=== PATIENT | female | born 1970 | race African-American/Black ===

== ENCOUNTER 2022-09-27 03:33 | Inpatient (IN) | payer OTHER ==
[~2022-09-27] VITALS: Ht 165.1 cm; Wt 131.5 kg
[2022-09-27] MEDS ORDERED: ACETAMINOPHEN 325MG TABLET PO STA (05:28)
[2022-09-27] MEDS ORDERED: SODIUM CHLORIDE 0.9% 1,000 ML IV ONE (05:30)
[2022-09-27 05:56] LABS: BASOPHILS % 1.4 % (0.0-2.0); HEMOGLOBIN. 9.2 g/dL (12.0-16.0); LYMPHOCYTES % 21.2 % (20.0-50.0); MEAN CORPUSCULAR HEMOGLOBIN 19.8 pg (28.0-32.0); MEAN CORPUSCULAR VOLUME 66.9 fL (81.0-99.0); MEAN PLATELET VOLUME 8.5 fl (7.4-10.4); MONOCYTES % 11.1 % (2.0-8.0); NEUTROPHILS % 66.3 % (40.0-76.0); PLATELET 279 x1000/uL (130-400); RED BLOOD CELL COUNT 4.63 mill/uL (4.2-5.4); RED CELL DISTRIBUTION WIDTH 29.5 % (11.6-14.6)
[2022-09-27 06:07] LABS: CHLORIDE 106 mEq/L (98-107)
[2022-09-27 06:10] LABS: INR 1.1; PROTHROMBIN TIME 11.6 sec (9.6-11.0)
[2022-09-27 06:13] LABS: ETHANOL BLOOD 188 mg/dL (-10)
[2022-09-27 07:25] LABS: PLATELET ESTIMATE NORMAL
[2022-09-27] MEDS ORDERED: FUROSEMIDE 40MG/4ML VIAL IV ONE (08:00)
[2022-09-27] MEDS ORDERED: NITROGLYCERIN OINT 1GM/INCH UDPKT TD ONE (08:00)
[2022-09-27] MEDS ORDERED: ASPIRIN 325MG EC TABLET PO NR (10:00)
[2022-09-27] MEDS ORDERED: ACETAMINOPHEN 325MG TABLET PO NR (10:00)
[2022-09-27] MEDS ORDERED: ENOXAPARIN 100MG/ML SYR SUBCUT NR (10:00)
[2022-09-27] MEDS ORDERED: MORPHINE SULFATE 4 MG/ML CPJ (NOT FOR IM USE) IV NR (11:00)
[2022-09-27] MEDS ORDERED: ACETAMINOPHEN 325MG TABLET PO PRN ×2 (13:30)
[2022-09-27] MEDS ORDERED: LORAZEPAM 0.5MG TABLET PO PRN (13:30)
[2022-09-27] MEDS ORDERED: DOCUSATE SODIUM 100MG CAPSULE PO PRN (13:30)
[2022-09-27] MEDS ORDERED: HYDROCODONE/ACETAMINOPHEN 5/325MG TABLET PO PRN (13:30)
[2022-09-27] MEDS ORDERED: CLONIDINE 0.1MG TABLET PO PRN (13:30)
[2022-09-27] MEDS ORDERED: PIPERACILLIN/TAZ 3.375G PREMIX 50 ML IV NR (13:30)
[2022-09-27] MEDS ORDERED: ONDANSETRON HCL 4MG/2ML INJ IV PRN (13:30)
[2022-09-27] MEDS ORDERED: IPRATROPIUM/ALBUTEROL 0.5-3(2.5)MG/3ML NEB HHN PRN (13:30)
[2022-09-27 14:30] LABS: HCG SCREEN NEGATIVE
[2022-09-27] MEDS ORDERED: VANCOMYCIN 2,000 MG in DEXT 5% WATER 500 ML IV SCH (14:30)
[2022-09-27] MEDS ORDERED: NALOXONE HCL 0.4MG/ML VIAL IV PRN (16:45)
[2022-09-27] MEDS: LISINOPRIL 10MG TABLET PO SCH (16:47)
[2022-09-27 17:20] VITALS: BP 148/96; PULSE 86; RESP 20; TEMP 97.8
[2022-09-27] MEDS ORDERED: FURO20TA4 PO (17:34)
[2022-09-27 20:00] VITALS: BP 153/89; PULSE 70; RESP 18; TEMP 96.9
[2022-09-27] MEDS: PIPERACILLIN/TAZOBACTAM 3.375 G in DEXTROSE 5% WATER 50 ML IV SCH (21:49)
[2022-09-27] MEDS: FUROSEMIDE 40MG/4ML VIAL IVP SCH (21:49)
[2022-09-27] MEDS ORDERED: PIPERACILLIN/TAZOBACTAM 3.375 G in DEXTROSE 5% WATER 50 ML IV SCH (22:00)
[2022-09-28] VITALS: BP 143/71; PULSE 73; RESP 18; TEMP 96.9
[2022-09-28 04:00] VITALS: BP 122/69; PULSE 73; RESP 18; TEMP 96.9
[2022-09-28] MEDS: PIPERACILLIN/TAZOBACTAM 3.375 G in DEXTROSE 5% WATER 50 ML IV SCH (05:31)
[2022-09-28 08:00] VITALS: BP 107/65; PULSE 83; RESP 20; TEMP 98.4
[2022-09-28 08:12] LABS: BASOPHILS % 0.6 % (0.0-2.0); EOSINOPHILS % 0.3 % (0.0-5.0); HEMATOCRIT. 31.6 % (36.0-48.0); HEMOGLOBIN. 9.5 g/dL (12.0-16.0); LYMPHOCYTES % 18.3 % (20.0-50.0); MEAN CORPUSCULAR VOLUME 66.6 fL (81.0-99.0); MEAN PLATELET VOLUME 9.1 fl (7.4-10.4); MONOCYTES % 10.4 % (2.0-8.0); NEUTROPHILS % 70.4 % (40.0-76.0); PLATELET 218 x1000/uL (130-400); RED BLOOD CELL COUNT 4.74 mill/uL (4.2-5.4); RED CELL DISTRIBUTION WIDTH 29.7 % (11.6-14.6)
[2022-09-28 08:27] LABS: CHLORIDE 102 mEq/L (98-107)
[2022-09-28] MEDS: FUROSEMIDE 40MG/4ML VIAL IVP SCH ×2 (08:43→16:52)
[2022-09-28] MEDS: LISINOPRIL 10MG TABLET PO SCH (08:43)
[2022-09-28] MEDS: BENZONATATE 100MG CAPSULE PO PRN ×2 (10:11→23:01)
[2022-09-28] MEDS: PHENOL/SODIUM PHENOLATE 1.4% SRPAY 177ML MT PRN ×4 (10:12→23:07)
[2022-09-28 12:00] VITALS: BP 117/66; PULSE 76; RESP 20; TEMP 98
[2022-09-28 13:00] LABS: TOTAL IRON BINDING CAPACITY 315 ug/dL (250-450)
[2022-09-28] MEDS ORDERED: VANCOMYCIN 1500MG in DEXTROSE 5% WATER 250ML IV SCH (14:00)
[2022-09-28 16:00] VITALS: BP 104/70; PULSE 80; RESP 20; TEMP 98.6
[2022-09-28 20:00] VITALS: BP 126/84; PULSE 78; RESP 20; TEMP 97.6
[2022-09-29] VITALS: BP 138/97; PULSE 74; RESP 18; TEMP 98.1
[2022-09-29 01:01] VITALS: BP 138/97; PULSE 74; TEMP 98.1; O2SAT 99
== END 2022-09-29 02:30 | disposition short-term general hospital (02) | DRG 871 ==
LOC: ER 03:33 → 8WST 12:24
PROVIDERS: ADMIT Internal Medicine; ATTEND Internal Medicine
DX: A41.9 Sepsis, unspecified organism (principal); J12.9 Viral pneumonia, unspecified; J96.90 Respiratory failure, unspecified, unspecified whether with hypoxia or hypercapnia; Z68.42 Body mass index [BMI] 45.0-49.9, adult; E66.01 Morbid (severe) obesity due to excess calories; R77.8 Other specified abnormalities of plasma proteins; Z20.822 Contact with and (suspected) exposure to COVID-19; I89.0 Lymphedema, not elsewhere classified; F10.129 Alcohol abuse with intoxication, unspecified; D64.9 Anemia, unspecified; I50.9 Heart failure, unspecified; I11.0 Hypertensive heart disease with heart failure
CPT/HCPCS: 36415; 71045; 80048; 80053; 80320; 82728; 83540; 83550; 83880; 84145; 84484; 84703; 85025; 85379; 85651; 87426; 93005; 99285; C9803; J1650; J1940; J2270; J2405; J2543; J3370; J7030; J7060; G0480